=== PATIENT | female | born 1955 | race Caucasian/White ===

== ENCOUNTER → 2017-12-22 | Day surgery (SDC) | payer OTHER ==
[~2017-12-22] VITALS: Ht 180.3 cm; Wt 67.1 kg
--- NOTE | 2017-12-22 14:16 | Operative Report ---
Operative/Inv Procedure Report Surgery Date: 12/22/17 Name of Procedure: Hemorrhoidectomy column complete Pre-Operative Diagnosis: Grade 3 internal hemorrhoid Post-Operative Diagnosis: Grade 3 internal hemorrhoids Estimated Blood Loss: less than 50ml Surgeon/Pack Train Driver: Semaj La Jr., DO Anesthesia: local monitored anesthesi, block Monitors: Per routine Drains: None Specimens: Hemorrhoids Complications: None Condition: Good Operative Indication: This is a 62-year-old female with long-standing prolapsing internal hemorrhoids. These hemorrhoids require manual reduction and frequently bleeding cause discomfort. After careful discussion of treatment options we decided on surgical excision of her hemorrhoids. Operative/Procedure Note Note: On the morning of her operation she did a fleets enema. She presented to [facility] and was taken to the operating room. She was placed in the prone jackknife position on the table. Next IV sedation was initiated. With the patient was comfortable to gluteal cleft was taped in the abducted position. The perineum was prepped and draped in usual fashion. A gentle digital exam was performed and then a Fans[employer] operating proctoscope was placed in the anal canal. The proctoscope was aligned with the left lateral internal hemorrhoid. An elliptical incision was carried out around the hemorrhoid starting at the hemorrhoid pedicle and coming on the anal margin skin. The external portion of the hemorrhoid was grasped and dissected from the underlying tissues. I clearly identified the internal anal sphincter and developed the plane between the sphincter and the hemorrhoid. At this point I came across the hemorrhoid pedicle with the electrocautery. A [id number] 2 -0 Vicryl was placed into the pedicle to assure hemostasis. The incision was then closed with a running locking 3-0 Vicryl suture. This exact procedure was next performed in the right posterior position and lastly in the right anterior position. After completing hemorrhoidectomy I made an inspection for hemostasis which was adequate. The perineum was cleansed and dried. Bacitracin ointment and a bulky dressing were applied. The patient tolerated the procedure well was converted to supine and taken to recovery area in good condition. At the end of operational needle sponges and instruments were accounted for. Findings: Grade 3 internal hemorrhoids Discharge Disposition: PACU
== END ==
LOC: STS 02:57
DX: K64.2 Third degree hemorrhoids (principal); G62.9 Polyneuropathy, unspecified; M19.90 Unspecified osteoarthritis, unspecified site; Z85.3 Personal history of malignant neoplasm of breast
CPT/HCPCS: 88304; J2250